=== PATIENT | male | born 1990 | race Hispanic/Latino ===

== ENCOUNTER 2019-05-19 11:57 | Emergency (ER) | payer SELFPAY ==
[2019-05-19] MEDS ORDERED: levETIRAcetam 500 MG TAB ONE (13:53)
[2019-05-19] MEDS ORDERED: SMZ./TMP. 800/160 MG TABLET ONE (13:53)
[2019-05-19] MEDS ORDERED: CEPHALEXIN 250 MG CAP ONE (13:54)
--- NOTE | 2019-05-19 14:39 | RAD REPORT ---
EXAM DESCRIPTION: RAD - Hand Left 2 View - 05/19/2019 2:26 pm CLINICAL HISTORY: r/o FB in second digit COMPARISON: No comparisons FINDINGS: Soft tissue swelling is seen involving the second digit. There is mild increased density w ithin the soft tissues along the palmar distal second finger which may be dystrophic calcification or radiopaque debris. No fracture seen.
--- NOTE | 2019-05-19 15:51 | ER ---
Nurse's Notes [facility] Name: Marck Corrigan Age: 28 yrs Sex: Male : 1990 Arrival Date: 05/19/2019 Time: 11:58 Bed Treatment Private MD: Diagnosis: Laceration with foreign body of left index finger without damage to nail;Local infection of the skin and subcutaneous tissue, unspecified Presentation: 05/19 12:26 Presenting complaint: Patient states: I went to [place] because I have a piece of metal la1 in my finger on my left hand. They told me to see a hand surgeon but I am afraid it is getting infect. Pt has discharge ppw from [facility] and is on keflex. Transition of care: patient was not received from another setting of care. Onset of symptoms was May 19, 2019. Risk Assessment: Do you want to hurt yourself or someone else? Patient reports no desire to harm self or others. Initial Sepsis Screen: Does the patient meet any 2 criteria? No. Patient's initial sepsis screen is negative. Does the patient have a suspected source of infection? No. Patient's initial sepsis screen is negative. Care prior to arrival: None. 12:26 Method Of Arrival: Ambulatory la1 12:26 Acuity: QUETA 4 la1 Triage Assessment: 14:10 General: Appears in no apparent distress. Behavior is calm. Pain: Complains of pain in iw palmar aspect of distal phalanx of left index finger. - Social history:: Smoking status: unknown. Screenin:54 Abuse screen: Denies threats or abuse. Denies injuries from another. Nutritional iw screening: No deficits noted. Tuberculosis screening: No symptoms or risk factors identified. Fall Risk None identified. Assessment: 14:52 Reassessment: Patient appears in no apparent distress at this time. Patient and/or iw family updated on plan of care and expected duration. Pain level reassessed. Patient is alert, oriented x 3, equal unlabored respirations, skin warm/dry/pink. finger cleaned with chlorhexidine, dressed with 4X4 gauze and Coban. Musculoskeletal: Range of motion: intact in all extremities, Swelling present in palmar aspect of distal phalanx of left index finger. 15:43 Reassessment: pt left from room, called pt cell phone and pt states he had to leave iw because he rode with his friend and his friend needed, pt speaking with Dr. Flowers via telephone. Vital Signs: 12:28 BP 146 / 74; Pulse 74; Resp 16; Temp 97.7; Pulse Ox 100% on R/A; la1 ED Course: 11:58 Patient arrived in ED. as 12:28 Triage completed. la1 12:28 Arm band placed on left wrist. la1 12:50 Blanca Merchant FNP-C [facility] kb 12:50 Chandler Flowers MD is Attending Physician. kb 13:18 Susan Yang, RN is Primary Nurse. iw 14:54 No provider procedures requiring assistance completed. Patient did not have IV access iw during this emergency room visit. Administered Medications: 13:56 Drug: Bactrim (160 mg-800 mg (DS) 1 tablet Route: PO; iw 13:56 Drug: KeFLEX 500 mg Route: PO; iw Outcome: 15:58 Eloped from patient exam room. iw 15:58 Condition: good 15:59 Patient left the ED. iw Signatures: Blanca Merchant FNP-C FNP-Pilar Siu as Susan Yang, RN RN iw Francisco Javier Hudson RN RN la1
--- NOTE | 2019-05-19 15:51 | EDPHYS ---
Physician Documentation [facility] Name: Marck Corrigan Age: 28 yrs Sex: Male : 1990 Arrival Date: 05/19/2019 Time: 11:58 Bed Treatment Private MD: ED Physician Chandler Flowers HPI: 05/19 13:30 This 28 yrs old Male presents to ER via Ambulatory with complaints of Finger kb Injury - Laceration. 13:30 The patient or guardian reports injury, pain, swelling, tenderness. The complaints kb affect the left index finger. Context: The problem was sustained at home, resulted from pinched finger with paint sprayer and got a piece of metal stuck in it. Onset: The symptoms/episode began/occurred 3 day(s) ago. Modifying factors: The symptoms are alleviated by nothing, the symptoms are aggravated by nothing. Associated signs and symptoms: The patient has no apparent associated signs or symptoms. Severity of symptoms: At their worst the symptoms were moderate, in the emergency department the symptoms are unchanged. The patient has not experienced similar symptoms in the past. The patient has been recently seen by a physician:. Pt reports he pinched his finger in a paint sprayer and also got a piece of metal stuck in it. Went to [place] yesterday and they tried to get the metal out, but were unable to do so. Wrote prescription for keflex and told him to follow up with a hand surgeon. Pt has prescription with him, did not slate picker the medication. - Social history:: Smoking status: unknown. ROS: 15:53 Constitutional: Negative for fever, chills, and weight loss, ENT: Negative for injury, kb pain, and discharge, Neck: Negative for injury, pain, and swelling, Cardiovascular: Negative for chest pain, palpitations, and edema, Respiratory: Negative for shortness of breath, cough, wheezing, and pleuritic chest pain, Abdomen/GI: Negative for abdominal pain, nausea, vomiting, diarrhea, and constipation, : Negative for injury, bleeding, discharge, and swelling, Neuro: Negative for headache, weakness, numbness, tingling, and seizure. 15:53 Skin: Positive for erythema, laceration(s), swelling, of the left index finger. Exam: 15:53 Constitutional: This is a well developed, well nourished patient who is awake, alert, kb and in no acute distress. Head/Face: Normocephalic, atraumatic. ENT: Nares patent. No nasal discharge, no septal abnormalities noted. Tympanic membranes are normal and external auditory canals are clear. Oropharynx with no redness, swelling, or masses, exudates, or evidence of obstruction, uvula midline. Mucous membranes moist. Neck: Trachea midline, no thyromegaly or masses palpated, and no cervical lymphadenopathy. Supple, full range of motion without nuchal rigidity, or vertebral point tenderness. No Meningismus. Chest/axilla: Normal chest wall appearance and motion. Nontender with no deformity. No lesions are appreciated. Cardiovascular: Regular rate and rhythm with a normal S1 and S2. No gallops, murmurs, or rubs. Normal PMI, no JVD. No pulse deficits. Respiratory: Lungs have equal breath sounds bilaterally, clear to auscultation and percussion. No rales, rhonchi or wheezes noted. No increased work of breathing, no retractions or nasal flaring. Abdomen/GI: Soft, non-tender, with normal bowel sounds. No distension or tympany. No guarding or rebound. No evidence of tenderness throughout. Neuro: Awake and alert, GCS 15, oriented to person, place, time, and situation. Cranial nerves II-XII grossly intact. Motor strength 5/5 in all extremities. Sensory grossly intact. Cerebellar exam normal. Normal gait. 15:53 Musculoskeletal/extremity: Extremities: grossly normal except: noted in the left index finger: erythema, laceration, pain, swelling, tenderness, ROM: limited active range of motion due to pain, in the left index finger, Circulation is intact in all extremities. Sensation intact. Vital Signs: 12:28 BP 146 / 74; Pulse 74; Resp 16; Temp 97.7; Pulse Ox 100% on R/A; la1 MDM: 13:18 Patient medically screened. kb 15:46 Data reviewed: vital signs, nurses notes. Data interpreted: Pulse oximetry: on room air kb is 100 %. Interpretation: normal. ED course: Pt left without notifying staff. Dr Flowers called pt and pt reported he had borrowed the truck he used to get here and the lead rider called him saying he needed his truck back right then so he had to leave. Dr Flowers discussed the mechanism of injury and now pt reports there was a pressure injection injury. Dr Flowers expressed the importance of returning here or going to the nearest ER to see a hand specialist for a FB/pressure injection injury. Pt verbalized understanding over phone. . 05/19 15:31 Order name: NACHO; Complete Time: 15:38 EDMS Administered Medications: 13:56 Drug: Bactrim (160 mg-800 mg (DS) 1 tablet Route: PO; iw 13:56 Drug: KeFLEX 500 mg Route: PO; iw Disposition: 18:44 Co-signature as Attending Physician, Chandler Flowers MD. rn Disposition: 05/19/19 15:50 Patient left the facility after being seen by provider. Preliminary diagnosis are Laceration with foreign body of left index finger without damage to nail, Local infection of the skin and subcutaneous tissue, unspecified. - Patient left due to (see nurse's notes). - Condition is Stable. Signatures: Blanca Merchant, MICA MACHINE OPERATOR-C MICA MACHINE OPERATOR-Ckb Susan Yang RN RN iw Chandler Flowers MD MD turner off: (The following items were deleted from the chart) 15:53 15:50 This 28 yrs old Male presents to ER via Ambulatory with complaints of kb Finger Injury - Laceration. kb 15:59 15:50 05/19/2019 15:50 Patient left the facility after being seen by provider. iw Preliminary diagnosis is Laceration with foreign body of left index finger without damage to nail; Local infection of the skin and subcutaneous tissue, unspecified. Reason stated they are leaving due to (see nurse's notes). Condition is Stable. kb
[2019-05-19 18:58] VITALS: BP 146/74; TEMP 97.7; O2SAT 100
== END 2019-05-19 15:59 | disposition left against medical advice (07) ==
LOC: ER 11:57
DX: S61.221A Laceration with foreign body of left index finger without damage to nail, initial encounter (principal); L08.9 Local infection of the skin and subcutaneous tissue, unspecified; W26.8XXA Contact with other sharp object(s), not elsewhere classified, initial encounter; W45.8XXA Other foreign body or object entering through skin, initial encounter; Y93.9 Activity, unspecified; Y92.9 Unspecified place or not applicable
CPT/HCPCS: 99282